=== PATIENT | female | born 1985 | race Caucasian/White ===

== ENCOUNTER 2019-04-12 07:53 | Inpatient (IN) | payer MEDICAID ==
[2019-04-12] VITALS (11 sets, daily range): BP systolic 118–155; BP diastolic 73–99
[~2019-04-12] VITALS: Ht 172.7 cm; Wt 106.2 kg
[~2019-04-12 07:53] MED LIST: CALC300T4 PO; CODE-54 PO; DCS100C PO; DOCU100C37 PO; IBUP-1780 PO; Ibuprofen PO; OXYC-465 PO; PREN-37 PO; PREN1TAB71 PO
[2019-04-12] MEDS ORDERED: fentaNYL INJECTION 100 MCG/2 ML AMP ONE ×3 (07:55→13:22)
[2019-04-12] MEDS ORDERED: KETAMINE/NaCl 50 MG/5 ML SYRINGE (ED ONLY) ONE (07:56)
[2019-04-12] MEDS ORDERED: fentaNYL INJECTION 100 MCG/2 ML AMP IVP STA ×2 (07:59→08:48)
[2019-04-12] MEDS ORDERED: KETAMINE 50 MG/ML 10 ML VIAL IV ONE (08:00)
--- NOTE | 2019-04-12 08:12 | ED Lower Extremity ---
General Chief Complaint: Lower Extremity Stated Complaint: LEG INJ Nursing Triage Note: ASSISTED PT OUT OF CAR. PT STATES SHE SLIPPED ON THE ICE ET THINKS HER RIGHT LEG IS BROKE. Nursing Sepsis Screen: No Definite Risk Source: patient Exam Limitations: no limitations History of Present Illness Date Seen by Provider: Apr 12, 2019 Time Seen by Provider: 07:56 Initial Comments Here with 4 right ankle and lower leg pain after she slipped on the ice this morning. She feels like her legs broke. She does have deformity at the ankle on the right with lateral rotation of the foot. Complains of pain near the knee as well. Denies injury otherwise. Denies hitting her head or loss of consciousness. She did wrap the leg in a carpet for splinting. Onset: just prior to arrival (less than 30 minutes ago) Severity: moderate, severe Pain/Injury Location: right leg, right ankle Method of Injury: fell, twisted Modifying Factors: Improves With Immobilization; Worse With Movement Allergies and Home Medications Allergies Coded Allergies: Sulfa (Sulfonamide Antibiotics) (Unverified Allergy, Mild, Rash, 07/10/13) hydrocodone (Unverified Allergy, Mild, Itching, 07/10/13) Home Medications Calcium Carbonate 300 Mg Tab.chew, 600 MG PO Q4H PRN for HEARTBURN, (Reported) TAKE 2 (300MG) TABS Docusate Sodium 100 Mg Capsule, 100 MG PO BID Prescribed by: DELVIN REYES on 05/04/15947 Ibuprofen 800 Mg Tablet, 800 MG PO Q6H Prescribed by: DELVIN REYES on 05/04/1548 Oxycodone HCl/Acetaminophen 1 Each Tablet, 1-2 TAB PO Q4H PRN for PAIN Prescribed by: DELVIN REYES on 05/04/15 0948 Vit/Iron Fumarate/FA 1 Each Tablet, 1 EACH PO DAILY, (Reported) Patient Home Medication List Home Medication List Reviewed: Yes Review of Systems Constitutional: see HPI; No chills, No fever EENTM: no symptoms reported Respiratory: no symptoms reported Cardiovascular: no symptoms reported Gastrointestinal: No nausea, No vomiting Genitourinary: no symptoms reported Musculoskeletal: see HPI, joint pain, muscle pain Skin: change in color; No lesions Psychiatric/Neurological: Denies Headache, Denies Numbness, Denies Tingling All Other Systems Reviewed Negative Unless Noted: Yes Past Cmhzpuj-Ltqjfq-Exjaud Hx Past Med/Social Hx: Reviewed Nursing Past Med/Soc Hx Patient Social History Alcohol Use: Denies Use Recreational Drug Use: No Smoking Status: Never a Smoker Recent Foreign Travel: No Contact w/Someone Who Travel: No Recent Infectious Disease Expo: No Immunizations Up To Date Tetanus Booster (TDap): Unknown PED Vaccines UTD: No Past Medical History Surgeries: Yes Section Respiratory: No Cardiac: No Neurological: No Last Menstrual Period: Apr 05, 2019 Reproductive Disorders: No Genitourinary: No Gastrointestinal: Yes Gastroesophageal Reflux Musculoskeletal: No Endocrine: No Adverse Reaction/Blood Tranf: No Family Medical History Reviewed Nursing Family Hx Diabetes mellitus 19 FATHER Grandparents (Maternal Grandfather) Hepatitis C Grandparents (Maternal Grandmother) Hypertension Grandparents (Grandparents) Tuberculosis Grandparents (Maternal Grandmother) Physical Exam Vital Signs Vital Signs - First Documented 04/12/19 04/12/19 07:53 09:15 Temp 37.0 Pulse 66 Resp 16 B/P (MAP) 152/96 (114) Pulse Ox 99 O2 Delivery Room Air O2 Flow Rate 2.00 Capillary Refill : Less Than 3 Seconds Height, Weight, BMI Height: 5'8.00" Weight: 229lbs. oz. 103.552306mz; 35.00 BMI Method: General Appearance: WD/WN, moderate distress HEENT: PERRL/EOMI, pharynx normal Neck: non-tender, full range of motion, supple, normal inspection Cardiovascular: regular rate, rhythm, no murmur Respiratory: lungs clear, normal breath sounds Gastrointestinal: non tender, soft Hips: bilateral hip non-tender, bilateral hip normal inspection, bilateral hip no evidence of injury Legs: left leg non-tender, left leg normal inspection, left leg normal range of motion, left leg no evidence of injury; right leg pain, right leg soft tissue tenderness, right leg swelling, right leg other (pain at the proximal tibia and fibula as well as at the obvious deformity at the ankle.) Knees: left knee non-tender, left knee normal inspection, left knee normal range of motion, left knee no evidence of injury; right knee pain, right knee soft tissue tenderness, right knee swelling, right knee other (distal) Ankles: right ankle deformity, right ankle ecchymosis (medial malleolus), right ankle limited range of motion, right ankle pain, right ankle soft tissue tenderness, right ankle swelling, right ankle other (lateral rotation of the foot. Pulses present dorsalis pedis and posterior tibia) Feet: right foot soft tissue tenderness, right foot swelling, right foot other (findings all of the proximal foot) Neurologic/Tendon: normal sensation, normal motor functions Neurologic/Psychiatric: alert, oriented x 3 Skin: warm/dry, ecchymosis (medial ankle on the right) Procedures/Interventions Patient Education: Explained Benefits Agreement on procedure with pt: Yes Breath Sounds per Auscultation: Clear Heart Sounds per Auscultation: Regular Airway Exam: Mouth opens >2 fingers, Neck Full Range of Motion, Visulation of Uvula Sedation Adminstration Time: 09:11 Total Time spent in CS 20 Tolerated sedation well without significant adverse event or affect. Did have some mild hypoxia briefly that resolved with positioning and oxygen. End-tidal CO2 remained in the 30s throughout. Re-examination Time: 09:33 Re-examination Improving. Normal vital signs noted with normal O2 saturations. Splinting and Joint Reduction : Pre-Proc Neuro Vasc Exam: normal Post-Proc Neuro Vasc Exam: normal Progress Reduction and splinting of right ankle secondary to try malleolar fracture and proximal fibula fracture Reduction Attempts: 1 Pre-Procedure NV Exam: Yes post joint reduction film: joint reduced Progress Tolerated procedure well with no complications. Hand-Made Type: fiberglass Splint Application: Short Leg (right) Progress/Results/Core Measures Results/Orders Lab Results Laboratory Tests Test 04/12/19 08:00 04/12/19 09:25 Range/Units White Blood Count 6.6 4.3-11.0 10^3/uL Red Blood Count 4.93 4.35-5.85 10^6/uL Hemoglobin 13.9 11.5-16.0 G/DL Hematocrit 41 35-52 % Mean Corpuscular Volume 84 80-99 FL Mean Corpuscular Hemoglobin 28 25-34 PG Mean Corpuscular Hemoglobin Concent 34 32-36 G/DL Red Cell Distribution Width 16.4 H 10.0-14.5 % Platelet Count 392 130-400 10^3/uL Mean Platelet Volume 11.2 H 7.4-10.4 FL Neutrophils (%) (Auto) 39 L 42-75 % Lymphocytes (%) (Auto) 52 H 12-44 % Monocytes (%) (Auto) 7 0-12 % Eosinophils (%) (Auto) 2 0-10 % Basophils (%) (Auto) 1 0-10 % Neutrophils # (Auto) 2.6 1.8-7.8 X 10^3 Lymphocytes # (Auto) 3.5 1.0-4.0 X 10^3 Monocytes # (Auto) 0.5 0.0-1.0 X 10^3 Eosinophils # (Auto) 0.1 0.0-0.3 10^3/uL Basophils # (Auto) 0.0 0.0-0.1 10^3/uL Sodium Level 136 135-145 MMOL/L Potassium Level 5.5 H 3.6-5.0 MMOL/L Chloride Level 106 98-107 MMOL/L Carbon Dioxide Level 15 L 21-32 MMOL/L Anion Gap 15 H 5-14 MMOL/L Blood Urea Nitrogen 12 7-18 MG/DL Creatinine 1.29 0.60-1.30 MG/DL Estimat Glomerular Filtration Rate 47 BUN/Creatinine Ratio 9 Glucose Level 121 H 70-105 MG/DL Calcium Level 9.6 8.5-10.1 MG/DL Corrected Calcium 9.2 8.5-10.1 MG/DL Total Bilirubin 0.7 0.1-1.0 MG/DL Aspartate Amino Transf (AST/SGOT) 42 H 5-34 U/L Alanine Aminotransferase (ALT/SGPT) 21 0-55 U/L Alkaline Phosphatase 60 40-136 U/L Total Protein 8.5 H 6.4-8.2 GM/DL Albumin 4.5 3.2-4.5 GM/DL Serum Test, Qualitative NEGATIVE NEGATIVE Urine Color YELLOW Urine Clarity CLEAR Urine pH 6.5 5-9 Urine Specific [place] 1.025 H 1.016-1.022 Urine Protein TRACE NEGATIVE Urine Glucose (UA) NEGATIVE NEGATIVE Urine Ketones 3+ H NEGATIVE Urine Nitrite NEGATIVE NEGATIVE Urine Bilirubin NEGATIVE NEGATIVE Urine Urobilinogen 0.2 < = 1.0 MG/DL Urine Leukocyte Esterase NEGATIVE NEGATIVE Urine RBC (Auto) NEGATIVE NEGATIVE Urine RBC NONE /HPF Urine WBC RARE /HPF Urine Squamous Epithelial Cells 2-5 /HPF Urine Crystals NONE /LPF Urine Bacteria TRACE /HPF Urine Casts NONE /LPF Urine Mucus MODERATE H /LPF Urine Culture Indicated NO My Orders Orders - SHAYNE ALSTON MD Fentanyl Injection (Sublimaze Injection (04/12/19 07:55) Ketamine Syringe (Ed Only) (Ketamine Syr (04/12/19 07:56) Tibia/Fibula, Right, 2 Views (04/12/19 07:59) Ankle, Right, 3 Views (04/12/19 07:59) Cbc With Automated Diff (04/12/19 07:59) Comprehensive Metabolic Panel (04/12/19 07:59) Hcg,Qualitative Serum (04/12/19 07:59) Fentanyl Injection (Sublimaze Injection (04/12/19 07:59) Ketamine Injection (Ketalar Injection) (04/12/19 08:00) Ketamine Syringe (Ed Only) (Ketamine Syr (04/12/19 08:15) Fentanyl Injection (Sublimaze Injection (04/12/19 08:48) Ketamine Injection (Ketalar Injection) (04/12/19 09:15) Ankle, Right, 2 Views (04/12/19 09:27) Catheter(Urinary) Insert & Ass 03,15 (04/12/19 09:27) Ua Culture If Indicated (04/12/19 09:27) Ondansetron Injection (Zofran Injectio (04/12/19 09:45) Ondansetron Injection (Zofran Injectio (04/12/19 09:37) Lorazepam Injection (Ativan Injection) (04/12/19 10:00) Medications Given in ED Current Medications Medications Dose Ordered Sig/Raven Route Start Time Stop Time Status Last Admin Dose Admin Ketamine HCl 25 mg ONCE ONCE IV 04/12/19 08:15 04/12/19 08:16 DC 04/12/19 08:09 25 MG Ketamine HCl 100 mg ONCE ONCE IV 04/12/19 09:15 04/12/19 09:16 DC 04/12/19 09:11 100 MG Ondansetron HCl 4 mg ONCE ONCE IVP 04/12/19 09:45 04/12/19 09:46 DC 04/12/19 09:44 4 MG Vital Signs/I&O 04/12/19 04/12/19 07:53 09:15 Temp 37.0 Pulse 66 Resp 16 B/P (MAP) 152/96 (114) Pulse Ox 99 O2 Delivery Room Air Nasal Cannula O2 Flow Rate 2.00 Blood Pressure Mean: 114 Progress Progress Note : Progress Note Seen and evaluated. IV, labs, x-ray right tib-fib and ankle. Fentanyl 50 g IV and ketamine 25 mg IV ordered. Monitor patient. 0849: I did discuss the case with Dr. Newman. He is asked that I go ahead and reduce the ankle and place it in a splint and he will see the patient in about an hour and patient will go to surgery. This was discussed with the patient and family. 0910: We will do conscious sedation. Consent signed and on chart. Patient did receive an additional dose of fentanyl 50 g IV prior to sedation. 0911: Sedation ensues. 0933: Patient did receive ketamine 100 mg IV for sedation. Excellent effect without significant adverse issues. Joint reduced and splinted. Gonzalez catheter placed. Tolerated procedure well with no complications. 0945: Zofran 4 mg IV for nausea. Consideration for Ativan due to some anxiousness but this was held as she was better. Monitor patient. Diagnostic Imaging Diagonstic Imaging: Xray Plain Films/CT/US/NM/MRI: other Comments [facility] [place], [place] NAME: RAI KAMARA [facility] REC#: [id number] PT STATUS: REG ER : 1985 PHYSICIAN: SHAYNE ALSTON MD ADMIT DATE: 04/12/19/ER Signed Date of Exam:04/12/19 TIBIA/FIBULA, RIGHT, 2 VIEWS CLINICAL INDICATION: Patient slipped and fell this morning. Patient has right ankle injury. EXAMS: 1: X-ray of the right tibia-fibula, four views. 2: X-ray of the right ankle, three views. COMPARISON: None. FINDINGS: There is a comminuted and displaced oblique fracture involving the distal fibula which demonstrates anterior apex angulation and slight valgus angulation. There is also widening of the syndesmotic joint by at least 6 mm. There is a nondisplaced fracture of the medial malleolus. There is a posteriorly displaced fracture of the posterior malleolus with a fracture fragment displaced at least 10 mm posteriorly. There is soft tissue swelling adjacent to the ankle. There is posterior dislocation of the talus in relation to the tibia. There is a nondisplaced slightly oblique fracture involving the proximal diaphysis of the fibula. IMPRESSION: 1: X-ray of the right tibia and fibula and right ankle shows a fracture dislocation of the right ankle. There is widening of the syndesmotic joint and posterior dislocation of the talus in relation to the tibia. 2: There are comminuted and displaced fractures of the distal left fibula and posterior malleolus, and nondisplaced fractures of the proximal fibular diaphysis and medial malleolus. Dictated by: Dictated on workstation # [id number] Dict: 04/12/19 0850 Trans: 04/12/19 0917 [id number] Interpreted by: ALCIDES COCHRAN MD Electronically signed by: ALCIDES COCHRAN MD 04/12/19916 Reviewed: Reviewed by Md Diagonstic Imaging: Xray Plain Films/CT/US/NM/MRI: ankle Comments [facility] [place], [place] NAME: RAI KAMARA Ha [facility] REC#: [id number] PT STATUS: REG ER : 1985 PHYSICIAN: SHAYNE ALSTON MD ADMIT DATE: 04/12/19/ER Draft Date of Exam:04/12/19 ANKLE, RIGHT, 3 VIEWS CLINICAL INDICATION: Patient slipped and fell this morning. Patient has right ankle injury. EXAMS: 1: X-ray of the right tibia-fibula, four views. 2: X-ray of the right ankle, three views. COMPARISON: None. FINDINGS: There is a comminuted and displaced oblique fracture involving the distal fibula which demonstrates anterior apex angulation and slight valgus angulation. There is also widening of the syndesmotic joint by at least 6 mm. There is a nondisplaced fracture of the medial malleolus. There is a posteriorly displaced fracture of the posterior malleolus with a fracture fragment displaced at least 10 mm posteriorly. There is soft tissue swelling adjacent to the ankle. There is posterior dislocation of the talus in relation to the tibia. There is a nondisplaced slightly oblique fracture involving the proximal diaphysis of the fibula. IMPRESSION: 1: X-ray of the right tibia and fibula and right ankle shows a fracture dislocation of the right ankle. There is widening of the syndesmotic joint and posterior dislocation of the talus in relation to the tibia. 2: There are comminuted and displaced fractures of the distal left fibula and posterior malleolus, and nondisplaced fractures of the proximal fibular diaphysis and medial malleolus. Dictated on workstation # [id number] Dict: 04/12/19 0850 Trans: 04/12/19 09 [facility] [id number] Interpreted by: ALCIDES COCHRAN MD Electronically signed by: Reviewed: Reviewed by Me Diagonstic Imaging: Xray Plain Films/CT/US/NM/MRI: ankle Comments [facility] [place] [place] NAME: RAI KAMARA [facility] REC#: [id number] PT STATUS: REG ER : 1985 PHYSICIAN: SHAYNE ALSTON MD ADMIT DATE: 04/12/19/ER Draft Date of Exam:04/12/19 ANKLE, RIGHT, 2 VIEWS INDICATION: Right ankle injury with fracture AP and lateral views of the right ankle are obtained. Since the examination of earlier in the day, there has been significant reduction in displaced fractures and ankle dislocation. There is mild displacement of comminuted spiral type fracture involving distal shaft of the fibula with mildly displaced medial malleolar fracture. Alignment at the ankle joint is now anatomic. There is also probable mildly displaced posterior malleolar fracture. IMPRESSION: Trimalleolar fracture with mild displacement of each component. There has been reduction in ankle dislocation. Dictated on workstation # [id number] Dict: 04/12/19 0943 Trans: 04/12/19 0945 [facility] [id number] Interpreted by: DIONE BONDS MD Electronically signed by: Reviewed: Reviewed by Me Departure Communication (Admissions) Time/Spoke to Admitting Phy: 08:49 Impression Primary Impression: Trimalleolar fracture of right ankle Qualified Codes: S82.851A - Displaced trimalleolar fracture of right lower leg, initial encounter for closed fracture Additional Impression: Fracture, fibula, proximal Qualified Codes: S82.811A - Torus fracture of upper end of right fibula, initial encounter for closed fracture Disposition: ADMITTED INPATIENT Condition: Stable Admissions Decision to Admit Reason: Admit from ER (Trauma) Decision to Admit/Date: Apr 12, 2019 Time/Decision to Admit Time: 08:49 Departure-Patient Inst. Referrals: DELVIN TEIXEIRA MD (PCP/Family) Primary Care Physician SHAYNE ALSTON MD Apr 12, 2019 08:12
[2019-04-12] MEDS ORDERED: KETAMINE/NaCl 50 MG/5 ML SYRINGE (ED ONLY) IV ONE (08:15)
[2019-04-12 08:27] LABS: BASOPHILS % (AUTO) 1 % (0-10); EOSINOPHILS # (AUTO) 0.1 10^3/uL (0.0-0.3); EOSINOPHILS % (AUTO) 2 % (0-10); HEMATOCRIT 41 % (35-52); HEMOGLOBIN 13.9 G/DL (11.5-16.0); LYMPHOCYTES # (AUTO) 3.5 X 10^3 (1.0-4.0); LYMPHOCYTES % (AUTO) 52 % (12-44); MEAN CORPUSCULAR HEMOGLOBIN 28 PG (25-34); MEAN CORPUSCULAR HGB CONC 34 G/DL (32-36); MEAN CORPUSCULAR VOLUME 84 FL (80-99); MEAN PLATELET VOLUME 11.2 FL (7.4-10.4); MONOCYTES # (AUTO) 0.5 X 10^3 (0.0-1.0); MONOCYTES % (AUTO) 7 % (0-12); NEUTROPHILS # (AUTO) 2.6 X 10^3 (1.8-7.8); NEUTROPHILS % (AUTO) 39 % (42-75); PLATELET COUNT 392 10^3/uL (130-400); RED CELL DISTRIBUTION WIDTH 16.4 % (10.0-14.5); WHITE BLOOD COUNT 6.6 10^3/uL (4.3-11.0)
[2019-04-12 08:38] LABS: ALBUMIN 4.5 GM/DL (3.2-4.5); BILIRUBIN,TOTAL 0.7 MG/DL (0.1-1.0); CALCIUM 9.6 MG/DL (8.5-10.1); CREATININE SERUM 1.29 MG/DL (0.60-1.30); POTASSIUM 5.5 MMOL/L (3.6-5.0); TOTAL PROTEIN 8.5 GM/DL (6.4-8.2)
--- NOTE | 2019-04-12 09:00 | Diagnostic Imaging Report ---
CLINICAL INDICATION: Patient slipped and fell this morning. Patient has right ankle injury. EXAMS: 1: X-ray of the right tibia-fibula, four views. 2: X-ray of the right ankle, three views. COMPARISON: None. FINDINGS: There is a comminuted and displaced oblique fracture involving the distal fibula which demonstrates anterior apex angulation and slight valgus angulation. There is also widening of the syndesmotic joint by at least 6 mm. There is a nondisplaced fracture of the medial malleolus. There is a posteriorly displaced fracture of the posterior malleolus with a fracture fragment displaced at least 10 mm posteriorly. There is soft tissue swelling adjacent to the ankle. There is posterior dislocation of the talus in relation to the tibia. There is a nondisplaced slightly oblique fracture involving the proximal diaphysis of the fibula. IMPRESSION: 1: X-ray of the right tibia and fibula and right ankle shows a fracture dislocation of the right ankle. There is widening of the syndesmotic joint and posterior dislocation of the talus in relation to the tibia. 2: There are comminuted and displaced fractures of the distal left fibula and posterior malleolus, and nondisplaced fractures of the proximal fibular diaphysis and medial malleolus. Dictated by: Dictated on workstation # [id number]
[2019-04-12] MEDS ORDERED: KETAMINE HCL 100 MG/ML 5 ML VIAL IV ONE (09:15)
[2019-04-12 09:35] LABS: BILIRUBIN,URINE NEGATIVE (NEGATIVE); CLARITY,URINE CLEAR; COLOR,URINE YELLOW; GLUCOSE, URINE (UA) NEGATIVE (NEGATIVE); KETONES,URINE 3+ (NEGATIVE); LEUKOCYTE ESTERASE ,URINE NEGATIVE (NEGATIVE); NITRITE,URINE NEGATIVE (NEGATIVE); PH,URINE 6.5 (5-9); PROTEIN,URINE TRACE (NEGATIVE)
[2019-04-12] MEDS ORDERED: ONDANSETRON 4 MG/2 ML (SDV) Z0FRAN ONE ×2 (09:37→11:24)
[2019-04-12] MEDS ORDERED: ONDANSETRON 4 MG/2 ML (SDV) Z0FRAN IVP ONE (09:45)
--- NOTE | 2019-04-12 09:46 | Diagnostic Imaging Report ---
INDICATION: Right ankle injury with fracture AP and lateral views of the right ankle are obtained. Since the examination of earlier in the day, there has been significant reduction in displaced fractures and ankle dislocation. There is mild displacement of comminuted spiral type fracture involving distal shaft of the fibula with mildly displaced medial malleolar fracture. Alignment at the ankle joint is now anatomic. There is also probable mildly displaced posterior malleolar fracture. IMPRESSION: Trimalleolar fracture with mild displacement of each component. There has been reduction in ankle dislocation. Dictated by: Dictated on workstation # [id number]
[2019-04-12 09:51] LABS: BACTERIA,URINE TRACE /HPF; WBC,URINE RARE /HPF
[2019-04-12] MEDS ORDERED: LORazepam INJ 2 MG/ML (ATIVAN) VIAL IVP ONE (10:00)
--- NOTE | 2019-04-12 10:30 | History & Physical Orthopedic ---
History and Physical Subjective Date of Exam 04/12/19 Chief Complaint Right ankle fracture HPI/Events since last exam Mrs. Stanley is a 33-year-old white female who injured her right ankle morning when she slipped on the sidewalk outside of her home. She complains of only right ankle pain. No other injuries. She was seen in emergency room where she is evaluated and x-rayed noted to have a trimalleolar fracture with a synd esmosis injury right ankle. I saw the patient in the ER after initially being seen by Dr. ALSTON. When I saw her she had already had her ankle reduced and splinted. This was done under IV sedation. She denies any previous injury to her right ankle. Medical, Surgical History SurgeryC-section 2 and D&C Illnessesnone Social History Reviewed and no additions or changes from the ER chart Family History Reviewed and no addition or changes from the ER chart Review of Systems Reviewed and no additions or changes from the ER chart Allergies: Coded Allergies: Sulfa (Sulfonamide Antibiotics) (Unverified Allergy, Mild, Rash, 07/10/13) hydrocodone (Unverified Allergy, Mild, Itching, 07/10/13) Home Meds Active Scripts Docusate Sodium (Docusate Sodium) 100 Mg Capsule, 100 MG PO BID, #60 CAP Prov:DELVIN TEIXEIRA MD 05/04/15 Oxycodone HCl/Acetaminophen (Oxycodone-Acetaminophen 10-325) 1 Each Tablet, 1-2 TAB PO Q4H PRN for PAIN, #60 TAB Prov:DELVIN TEIXEIRA MD 05/04/15 Ibuprofen (Ibuprofen) 800 Mg Tablet, 800 MG PO Q6H, #60 TAB Prov:DELVIN TEIXEIRA MD 05/04/15 Reported Medications Calcium Carbonate (Tums) 300 Mg Tab.chew, 600 MG PO Q4H PRN for HEARTBURN, TAB TAKE 2 (300MG) TABS 01/26/15 Vit/Iron Fumarate/FA ( Tablet) 1 Each Tablet, 1 EACH PO DAILY, TAB 01/26/15 Objective Exam Constitutional: [Mrs. Stanley is alert and oriented but still little drowsy from her ketamine conscious sedation] HEENT: [] Within normal limits Neck: [No pain with palpation or range of motion] Cardiovascular: [Regular rhythm without murmur] Respiratory: Clear to auscultation] Gastrointestinal: Abdomen nontender with normal bowel sounds] Genitourinary: [Deferred] Skin: [] No abnormalities Back/Spine: [No pain with palpation of the thoracolumbar spine. No pain over the pelvis.] Extremities: [Right lower extremity has a posterior splint short leg. She has normal sensation of the foot and toes with good capillary refill. Unable to palpate pulses due to the splint. No pain in either hip with range of motion. No pain in either knee with range of motion. Full range of motion left ankle without pain. No foot pain. Normal sensation with good cap refill and good pulses] Neurologic: [Intact] Psychiatric: [] Hematologic/lymphatic/immunologic: [] Vital Signs Vital Signs Date Time Temp Pulse Resp B/P (MAP) Pulse Ox O2 Delivery O2 Flow Rate FiO2 04/12/19 09:15 Nasal Cannula 2.00 04/12/19 07:53 37.0 66 16 152/96 (114) 99 Room Air Lab Results Laboratory Tests 04/12/19 08:00: White Blood Count 6.6, Red Blood Count 4.93, Hemoglobin 13.9, Hematocrit 41, Mean Corpuscular Volume 84, Mean Corpuscular Hemoglobin 28, Mean Corpuscular Hemoglobin Concent 34, Red Cell Distribution Width 16.4H, Platelet Count 392, Mean Platelet Volume 11.2H, Neutrophils (%) (Auto) 39L, Lymphocytes (%) (Auto) 52H, Monocytes (%) (Auto) 7, Eosinophils (%) (Auto) 2, Basophils (%) (Auto) 1, Neutrophils # (Auto) 2.6, Lymphocytes # (Auto) 3.5, Monocytes # (Auto) 0.5, Eosinophils # (Auto) 0.1, Basophils # (Auto) 0.0, Sodium Level 136, Potassium Level 5.5H, Chloride Level 106, Carbon Dioxide Level 15L, Anion Gap 15H, Blood Urea Nitrogen 12, Creatinine 1.29, Estimat Glomerular Filtration Rate 47, BUN/Creatinine Ratio 9, Glucose Level 121H, Calcium Level 9.6, Corrected Calcium 9.2, Total Bilirubin 0.7, Aspartate Amino Transf (AST/SGOT) 42H, Alanine Aminotransferase (ALT/SGPT) 21, Alkaline Phosphatase 60, Total Protein 8.5H, Albumin 4.5, Serum Test, Qualitative NEGATIVE 04/12/19 09:25: Urine Color YELLOW, Urine Clarity CLEAR, Urine pH 6.5, Urine Specific [place] 1.025H, Urine Protein TRACE, Urine Glucose (UA) NEGATIVE, Urine Ketones 3+H, Urine Nitrite NEGATIVE, Urine Bilirubin NEGATIVE, Urine Urobilinogen 0.2, Urine Leukocyte Esterase NEGATIVE, Urine RBC (Auto) NEGATIVE, Urine RBC NONE, Urine WBC RARE, Urine Squamous Epithelial Cells 2-5, Urine Crystals NONE, Urine Bacteria TRACE, Urine Casts NONE, Urine Mucus MODERATEH, Urine Culture Indicated NO Imaging X-rays were reviewed which shows a trimalleolar fracture of the right ankle initially with posterior lateral displacement of the talus. Postreduction shows good alignment of the fractures but widening of the syndesmosis is noted Assessment and Plan Assessment Malleolar fracture right ankle Problem List Trimalleolar fracture right ankle Plan Open reduction internal fixation right ankle fracture. I discussed procedure risks, occasions they would like to proceed. Most likely will be stabilizing the syndesmosis along with plate and screws laterally and screws medially. She has a very small posterior malleolar fracture that has no articular cartilage that should reduce and probably will not require fixation. I did discuss the syndesmosis injury and the fact that this is an unstable fracture and will take approximately 12 weeks to recover. Nonweightbearing at approximately 6 weeks. We'll plan on keeping her overnight at least and most likely she will go home until Wednesday she'll require pain management and also physical therapy as she'll be nonweightbearing on the right. She's never used crutches or walker before. She is allergic to sulfa but has had no problems in the past with cephalosporins. She said oxycodone the past without any problems but does have itching with hydrocodone. Final Diagonsis Trimalleolar fracture right ankle Level of the visit: Level 3 GABO ENCARNACION MD Apr 12, 2019 10:30
[2019-04-12] MEDS ORDERED: NEO/POLY/BAC (NEOSPORIN) OINT 15 GM TUBE ONE (10:53)
[2019-04-12] MEDS ORDERED: ceFAZolin 2 GM/NS 50 ML (COMPOUNDED) IV NR (11:00)
[2019-04-12] MEDS ORDERED: ONDANSETRON 4 MG/2 ML (SDV) Z0FRAN IV PRN (11:15)
[2019-04-12] MEDS ORDERED: fentaNYL INJECTION 100 MCG/2 ML AMP IV PRN (11:15)
[2019-04-12] MEDS ORDERED: LIDOCAINE PF 2% 5 ML (XYLOCAINE) VIAL ONE (11:24)
[2019-04-12] MEDS ORDERED: SEVOFLURANE (ULTANE) 15 ML INHAL SOLN ONE (11:24)
[2019-04-12] MEDS ORDERED: DEXAMETHASONE 10 MG/ML (DECADRON) 1 ML VIAL ONE (11:24)
[2019-04-12] MEDS ORDERED: proPOfol 200 MG/20 ML (DIPRIVAN) VIAL IV ONE (11:24)
[2019-04-12] MEDS ORDERED: MIDAZOLAM 2 MG/2 ML (VERSED) VIAL ONE (11:25)
[2019-04-12] MEDS: LACTATED RINGERS 1,000 ML IV SCH ×2 (11:27→18:10)
[2019-04-12] MEDS ORDERED: FLU QUADRIvalent (5+ YOA) 2019-2020 (AFLURIA) 0.5 ML IM ONE (11:45)
[2019-04-12] MEDS ORDERED: LACTATED RINGERS 1,000 ML IV PRN (12:43)
[2019-04-12] MEDS ORDERED: ceFAZolin INJECTION 2,000 MG ONE (12:58)
[2019-04-12] MEDS ORDERED: HYDROmorphone 2 MG/ML VIAL (DILAUDID) ONE (13:34)
[2019-04-12] MEDS ORDERED: ROCURONIUM 10 MG/ML 5 ML SYRINGE IV ONE (13:40)
[2019-04-12] MEDS ORDERED: BUPIVACAINE 0.5% 30 ML (SENSORCAINE) VIAL ONE (14:43)
[2019-04-12] MEDS ORDERED: NEOSTIGMINE 3 MG/3 ML VIAL ONE (14:59)
[2019-04-12] MEDS ORDERED: GLYCOPYRROLATE 0.2 MG/ML (ROBINUL) 2 ML VIAL ONE (14:59)
--- NOTE | 2019-04-12 15:17 | Diagnostic Imaging Report ---
INDICATION: Fluoroscopy for right ankle ORIF. FINDINGS: Fluoroscopy was provided in the OR for right ankle ORIF. 46 seconds of fluoroscopic time was utilized. Images demonstrate a lateral plate and numerous screws transfixing the distal fibular fracture. There are two fully threaded syndesmotic screws. There are also partially threaded screws transfixing the medial malleolus. The alignment appears anatomic. IMPRESSION: Fluoroscopy for right ankle ORIF. Dictated by: Dictated on workstation # [id number]
[2019-04-12] MEDS ORDERED: fentaNYL INJECTION 100 MCG/2 ML AMP IVP PRN (15:45)
[2019-04-12] MEDS ORDERED: ONDANSETRON 4 MG/2 ML (SDV) Z0FRAN IVP PRN ×2 (15:45→16:15)
--- NOTE | 2019-04-12 16:01 | Operative Report - Ortho ---
Operative Report Surgeon (s)/Rear Admiral (s) Surgeon GABO ENCARNACION MD Rear Admiral n/a Pre-Operative Diagnosis trimalleolar fracture right ankle with syndesmosis disruption Post-Operative Diagnosis same Operative Report Date of Procedure: Apr 12, 2019 Name of Procedure Performed: Open reduction internal fixation of trimalleolar fracture right ankle with stabilization of the syndesmosis Description & Findings The patient was taken operating room in her hospital bed. The procedure risks, cases were discussed with the patient and family in the emergency room. After administration of general anesthesia she was placed on the OR table. Tourniquet was placed on the right thigh. The splint was removed from the right lower leg. The patient was given 2 g Ancef IV preoperatively. After a timeout, the right ankle and lower leg and foot were then prepped and draped in usual sterile manner. After prepping and elevation the tourniquet was elevated to 300 mmHg. At this point the time out was performed. Incision was made from the tip of the distal fibula proximally. This was taken down through subtendinous tissue. Bleeders are cauterized. Soft tissue also elevated off the distal fibula and then over the fracture site and proximal. Retractors were used to visualize the fracture. The patient had a segmental fracture with the middle fragment 2-1/2 mm in length. Fracture was reduced and held with reduction clamps his leg screws were placed across the fracture from anterior superior to posterior inferior at the upper fragment fracture site and then the lower fracture site. This held the fracture in good position. Then a 7 hole variable angle locking distal fibular compression plate was then applied. This found to fit well. Initial screw was placed through the distal slot and adjusted. Then screws were placed proximal to the fracture 3 and then 6 locking screws distal to the fracture in the distal fibula. The proximal screws were also locking. Again this bridge the segmental fracture. Image was used to visualize the fracture and plate and screw position and excellent alignment was noted. The syndesmosis did show widening and at this 0.2 syndesmosis screws were placed through the slots on the plate approximately a centimeter above the ankle mortise and then proximal to this. These were advanced with the syndesmosis reduced. The syndesmosis was then checked with stress with external rotation and a reduction and no widening of the syndesmosis was noted. The mortise remains symmetrical and the medial malleolar fragment was reduced anatomically. This point to percutaneous 4.0 mm partially threaded cannulated screws were placed percutaneously through the medial malleolus using guidewires and over drilling and then inserting 30 mm partially threaded screws. This held the medial malleolar fracture again which was anatomically reduced. Again there is no widening of the mortise and widening of the syndesmosis and the clear space remained symmetrical to the articular joint space. The posterior fragment was mildly displaced but did not contain any of the articular surface and the ankle was stable so this was not reduced and fixed. Again image was used to visualize the ankle after the above fixation and excellent alignment of the plate and screws were noted as well as a fibular fracture. The syndesmosis remained reduced. The medial malleolar fragment was anatomic and good position of the 2 screws. At this point the tourniquet was deflated after 75 minutes. There was minimal bleeding. Bleeders are cauterized. The wound was irrigated with normal saline. The lateral wound was closed with 0 Vicryl for musculature layers and 2-0 Vicryl for subcutaneous. The skin was closed with skin clips. The 2 wounds for passage of the percutaneous screws were closed with pb as well. Wounds were dressed with Neosporin and Adaptic 4 x 4's and wrapped with cast padding and web roll. The posterior and sugar tong splint were then applied which were wrapped with Gonzales wraps. After read lace of the tourniquet the patient had immediate blood flow back to foot toes with good capillary refill and good pulses. After application of the splint and Gonazles wraps and a popliteal block was placed by anesthesia. After this the patient was t ransferred to recovery room in good condition she tolerated the procedure well. n/a Tourniquet time again was 75 minutes at 300 mmHg Drainsnone Complicationsnone Anesthesia Type Gen. Estimated Blood Loss Less than 40 mL Packing none. Specimen(s) collected/removed None GABO ENCARNACION MD Apr 12, 2019 16:01
[2019-04-12] MEDS ORDERED: morphine INJ 10 MG/ML 1ML (SYR OR VIAL) IVP ONE (16:15)
[2019-04-12] MEDS ORDERED: HYDROmorphone 2 MG/ML VIAL (DILAUDID) IV ONE (16:15)
[2019-04-12] MEDS: oxyCODONE/APAP 5/325MG (PERCOCET 5) TABLET PO PRN ×2 (18:19→23:18)
[2019-04-12] MEDS: ceFAZolin 2 GM/50 ML NS 50 ML IV SCH (20:36)
[2019-04-13] VITALS: BP 125/77
[2019-04-13] MEDS: LACTATED RINGERS 1,000 ML IV SCH ×2 (02:57→13:25)
[2019-04-13 04:00] VITALS: BP 105/66
[2019-04-13] MEDS: ceFAZolin 2 GM/50 ML NS 50 ML IV SCH ×2 (04:06→13:52)
[2019-04-13] MEDS: ENOXAPARIN 40 MG/0.4 ML (LOVENOX) SYR SC SCH (06:23)
[2019-04-13 08:00] VITALS: BP 104/67
[2019-04-13] MEDS: oxyCODONE/APAP 5/325MG (PERCOCET 5) TABLET PO PRN ×4 (09:24→21:08)
--- NOTE | 2019-04-13 09:38 | Physical Therapy Evaluation ---
PT Evaluation-General Medical Diagnosis Admission Date Apr 12, 2019 at 10:24 Medical Diagnosis: Right Trimalteolas Fracture / Right Proximal Fibula Fracture Onset Date: Apr 12, 2019 Therapy Diagnosis Therapy Diagnosis: Debility Height/Weight Height (Feet): 5 Height (Inches): 8.00 Weight (Pounds): 229 Precautions Precautions/Isolations: Fall Prevention, Standard Precautions Weight Bear Status Right Lower Extremity: Right Non Weight Bearing Left Lower Extremity: Left Full Weight Bearing Referral Physician: Trent Reason for Referral: Evaluation/Treatment Medical History Pertinent Medical History: GERD Current History Patient presented to ER after slip on ice. Reviewed History: Yes Social History Home: Single Level Current Living Status: Significant Other Entry Into Home: Ramp PT Steps Into Home: 3 Patient currently has a ramp into house and that is where patient slipped. Dori nair states her dad is going to remove the ramp and there will three steps to get into the house. Prior Prior Level of Function SCALE: Activities may be completed with or without assistive devices. 6-Ujsfqzgkrn-exrboxn completes the activity by him/herself with no assistance from a helper. 5-Set-up or Clean-up Assistance-helper sets up or cleans up; patient completes activity. [place] assists only prior to or following the activity. 4-Supervision or Touching Assistance-helper provides verbal cues and/or touching/steadying and/or contact guard assistance as patient completes activity . Assistance may be provided throughout the activity or intermittently. 3-Partial/Moderate Assistance-helper does LESS THAN HALF the effort. [place] lifts, holds or supports trunk or limbs, but provides less than half the effort. 2-Substantial/Maximal Assistance-helper does MORE THAN HALF the effort. [place] lifts or holds trunk or limbs and provides more than half the effort. 9-Gusarbyiy-kzddrz does ALL the effort. Patient does none of the effort to complete the activity. Or, the assistance of 2 or more helpers is required for the patient to complete the activity. If activity was not attempted, code reason: 7-Patient Refused. 9-Not Applicable-not attempted and the patient did not perform the activity before the current illness, exacerbation or injury. 10-Not Attempted due to Environmental Limitations-(lack of equipment, weather restraints, etc.). 88-Not Attempted due to Medical Conditions or Safety Concerns. Bed Mobility: 6 Transfers (B,C,W/C): 6 Gait: 6 Stairs: 6 Indoor Mobility (Ambulation): Independent Stairs: Independent Prior Devices Use: None PT Evaluation-Current Subjective Patient is agreeable to therapy and is ready to get up. Pain Numeric Pain Scale: 5-Moderate Pain Location: Right Location Body Site: Foot Objective Patient Orientation: Person, Place, Time, Situation Attachments: Gonzalez Catheter, IV ROM/Strength ROM Lower Extremities BLE WFL except for right ankle Strength Lower Extremities WFL on LLE, RLE not tested. Integumentary/Posture Integumentary See nursing notes Bladder Incontinence: No Neuromuscular (Tone, Coordination, Reflexes) grossly intact Sensory Vision: Functional Hearing: Functional Sensation Left Lower Extremity: Intact Sensation Lower Extremities Patient has numbness in her RLE. Transfers Roll Left to Right (QC): 6 Sit to Lying (QC): 6 Lying to Sitting/Side of Bed(Q: 6 Sit to Stand (QC): 4 Gait Does the Patient Walk?: Yes Mode of Locomotion: Walk Anticipated Mode of Locomotion: Walk Walk 10 feet (QC): 4 Walk 50 ft with 2 Turns(QC): 4 Distance: 75' Gait Assistive Device: FWW Comments/Gait Description Patient was steady during ambulation and reported no dizziness during ambulation. Patient hopped on LLE and maintained RLE NWB status. Balance Sitting Static: Normal Sitting Dynamic: Normal Standing Static: Normal Standing Dynamic: Normal Assessment/Needs Patient was steady during ambulation and used the walker well maintaining NWB status on RLE. Patient had never used crutches prior and had reported some dizziness yesterday so walker is the safer option. Patient would benefit from skilled therapy to aide in patient returning home at maximum LOF. Rehab Potential: Good PT [facility] Goals [facility] Goals PT Front End Software Engineer Goals Time Frame: Apr 20, 2019 Roll Left & Right (QC): 6 Sit to Lying (QC): 6 Lying-Sitting on Side/Bed(QC): 6 Sit to Stand (QC): 6 Chair/Mme-be-Ezqnk Xfer(QC): 6 Toilet Transfer (QC): 6 Does the Patient Walk: Yes Walk 10 feet (QC): 6 Walk 50ft with 2 Turns (QC): 6 Walk 150 ft (QC): 6 PT Plan Problem List Problem List: Activity Tolerance, Functional Strength, Safety, Gait, Transfer Treatment/Plan Treatment Plan: Continue Plan of Care Treatment Plan: Education, Functional Activity Rich, Functional Strength, Gait, Safety, Therapeutic Exercise, Transfers Treatment Duration: Apr 20, 2019 Frequency: 6 times per week Estimated Hrs Per Day: .25 hour per day Patient and/or Family Agrees t: Yes Safety Risks/Education Patient Education: Gait Training, Transfer Techniques Teaching Recipient: Patient Teaching Methods: Discussion Response to Teaching: Reinforcement Needed Discharge Recommendations Therapy Discharge Recommendati: Home & Family Time/GCodes Time In: 901 Time Out: 918 Total Billed Treatment Time: 17 Total Billed Treatment 1 visit EV (17 minutes) HARINDER ANSARI PT Apr 13, 2019 09:38
--- NOTE | 2019-04-13 09:51 | Progress Note - Ortho ---
Progress Note Subjective Date of Exam 04/13/19 Chief Complaint POD#1 open reduction internal fixation of right distal fibula and medial malleolus with stabilization of syndesmosis HPI/Events since last exam Iwona is a 1 day postop open reduction internal fixation right distal fibula, percutaneous screw fixation of medial malleolus and stabilization of syndesmosis with 2 screws. When I saw she is ambulating in the [place] with a walker and nonweightbearing on the right. She hasn't had any pain medication since last evening but she is getting ready to take some oral pain medication after ambulation. She is complaining of some tingling in her toes. No other complaints. Review of Systems Reviewed and no additions or changes Allergies: Coded Allergies: Sulfa (Sulfonamide Antibiotics) (Verified Allergy, Mild, Rash, 04/12/19) hydrocodone (Verified Allergy, Mild, Itching, 04/12/19) Home Meds Discontinued Reported Medications Calcium Carbonate (Tums) 300 Mg Tab.chew, 600 MG PO Q4H PRN for HEARTBURN, TAB TAKE 2 (300MG) TABS 01/26/15 Vit/Iron Fumarate/FA ( Tablet) 1 Each Tablet, 1 EACH PO DAILY, TAB 01/26/15 Discontinued Scripts Docusate Sodium (Docusate Sodium) 100 Mg Capsule, 100 MG PO BID, #60 CAP Prov:DELVIN TEIXEIRA MD 05/04/15 Oxycodone HCl/Acetaminophen (Oxycodone-Acetaminophen 10-325) 1 Each Tablet, 1-2 TAB PO Q4H PRN for PAIN, #60 TAB Prov:DELVIN TEIXEIRA MD 05/04/15 Ibuprofen (Ibuprofen) 800 Mg Tablet, 800 MG PO Q6H, #60 TAB Prov:DELVIN TEIXEIRA MD 05/04/15 Objective Exam Constitutional: [] HEENT: [] Neck: [] Cardiovascular: [] Respiratory: [] Gastrointestinal: [] Genitourinary: [] Skin: [] Back/Spine: [] Extremities: [Her splint right lower leg is intact. She has good capillary refill of her toes. She has older sensation in all 5 toes. Simply move the toes without problems or pain. There is mild swelling.] Neurologic: [] Psychiatric: [] Hematologic/lymphatic/immunologic: [] Vital Signs Vital Signs Date Time Temp Pulse Resp B/P (MAP) Pulse Ox O2 Delivery O2 Flow Rate FiO2 04/13/19 08:00 36.6 71 20 104/67 (79) 99 Room Air 04/13/19 04:00 36.7 52 18 105/66 (79) 97 Room Air 04/13/19 00:00 36.4 50 20 125/77 (93) 97 Room Air 04/12/19 20:00 Room Air 04/12/19 19:20 36.4 90 16 118/73 (88) 96 Room Air 04/12/19 16:25 36.4 64 18 144/90 (108) 96 Room Air 04/12/19 16:20 Room Air 04/12/19 16:20 36.5 18 145/89 (107) 97 Room Air 04/12/19 16:12 Room Air 04/12/19 16:10 18 153/94 (113) 97 Room Air 04/12/19 16:05 Room Air 04/12/19 16:00 18 148/98 (115) 97 Room Air 04/12/19 15:50 Room Air 04/12/19 15:50 18 155/94 (114) 100 Room Air 04/12/19 15:43 Simple Mask 10 04/12/19 15:40 18 154/99 (117) 100 Simple Mask 10 04/12/19 15:38 Simple Mask 10 04/12/19 15:30 18 154/98 (116) 100 Simple Mask 10 04/12/19 15:25 Simple Mask 10 04/12/19 15:25 36.3 20 142/90 (107) 100 Simple Mask 10 04/12/19 12:00 36.4 64 18 120/76 (91) 91 Room Air 04/12/19 11:15 Room Air 04/12/19 11:07 37.0 64 18 120/76 91 Room Air 04/12/19 10:40 64 18 102/85 99 Room Air I & O 04/13/19 07:00 Intake Total 2670 ml Output Total 2250 ml Balance 420 ml Assessment and Plan Assessment Doing well first day postop Problem List Unchanged Plan I talked to Iwona and her about discharge. She is doing fairly well. We'll see how she does on her oral pain medication. She has 1 more dose of antibiotics at 1 o'clock this afternoon. I think her numbness or tingling is due to swelling. He did have normal sensation of her toes in recovery room. We'll see how she does throughout the day today. Therapy will continue to work with her as she has some steps to go up. If she is feeling up to it we may discharge her this afternoon. If not tomorrow morning. Final Diagonsis Status post open reduction internal fixation right distal fibula, percutaneous screw fixation medial malleolus, stabilization of syndesmosis with 2 syndesmotic screws Level of the visit: Level 3 Clinical Quality Measures DVT/VTE Risk/Contraindication: Risk Factor Score Per Nursin RFS Level Per Nursing on Admit: 4+=Very High GABO ENCARNACION MD Apr 13, 2019 09:51
--- NOTE | 2019-04-13 11:18 | Physical Therapy Daily Note ---
PT Daily Note-Current Subjective Patient is agreeable to therapy at this time. Appearance Patient in bed with leg elevated, call light and bedside table within reach. Family present. Mental Status Patient Orientation: Person, Place, Time, Situation Attachments: IV Transfers SCALE: Activities may be completed with or without assistive devices. 7-Ocnoykcxgz-pgrbide completes the activity by him/herself with no assistance from a helper. 5-Set-up or Clean-up Assistance-helper sets up or cleans up; patient completes activity. [place] assists only prior to or following the activity. 4-Supervision or Touching Assistance-helper provides verbal cues and/or touching/steadying and/or contact guard assistance as patient completes activity. Assistance may be provided throughout the activity or intermittently. 3-Partial/Moderate Assistance-helper does LESS THAN HALF the effort. [place] lifts, holds or supports trunk or limbs, but provides less than half the effort. 2-Substantial/Maximal Assistance-helper does MORE THAN HALF the effort. [place] lifts or holds trunk or limbs and provides more than half the effort. 9-Zdjdwlbyx-qaatie does ALL the effort. Patient does none of the effort to complete the activity. Or, the assistance of 2 or more helpers is required for the patient to complete the activity. If activity was not attempted, code reason: 7-Patient Refused. 9-Not Applicable-not attempted and the patient did not perform the activity before the current illness, exacerbation or injury. 10-Not Attempted due to Environmental Limitations-(lack of equipment, weather restraints, etc.). 88-Not Attempted due to Medical Conditions or Safety Concerns. Roll Left & Right (QC): 6 Sit to Lying (QC): 6 Lying to Sitting/Side of Bed(Q: 6 Sit to Stand (QC): 6 Weight Bearing Right Lower Extremity: Right Non Weight Bearing Left Lower Extremity: Left Full Weight Bearing Gait Training Does the Patient Walk?: Yes Distance: 20' Walk 10 feet (QC): 6 Gait Persons Needed: 1 Gait Assistive Device: FWW Ambulation is stable. Patient hops while maintaining NWB status. Wheelchair Training Does the Pt Use a Wheelchair?: No Stair Training Stair Training: Handrails/: uses walker #of Steps: 1 1 Step (curb) (QC): 4 Stairs: Pattern: Hops [facility] for safety Assessment Current Status: Excellent Progress Patient is steady during ambulation maintaining NWB status. Patient is able ascend/descend one step safely. Patient voices she wants to utilize a knee scooter in home. Education with patient on use initiated. Family present are in the health care field and feel comfortable with going home and status. PT to dismiss patient from services at this time. PT Care Home Goals Training Professional Goals PT Care Home Goals Time Frame: Apr 20, 2019 Roll Left & Right (QC): 6 Sit to Lying (QC): 6 Lying-Sitting on Side/Bed(QC): 6 Sit to Stand (QC): 6 Chair/Dza-lo-Kuurj Xfer(QC): 6 Toilet Transfer (QC): 6 Does the Patient Walk: Yes Walk 10 feet (QC): 6 Walk 50ft with 2 Turns (QC): 6 Walk 150 ft (QC): 6 PT Plan Treatment/Plan Treatment Plan: Discontinue PT, goals met Treatment Plan: Education, Functional Activity Rich, Functional Strength, Gait, Safety, Therapeutic Exercise, Transfers Treatment Duration: Apr 20, 2019 Frequency: 6 times per week Estimated Hrs Per Day: .25 hour per day Patient and/or Family Agrees t: Yes Safety Risks/Education Patient Education: Gait Training, Transfer Techniques, Steps Teaching Recipient: Patient, Family Teaching Methods: Discussion Discharge Recommendations Therapy Discharge Recommendati: Home & Family Time/GCodes Time In: 1058 Time Out: 1108 Total Billed Treatment Time: 10 Total Billed Treatment 1 visit FA (10 minutes) HARINDER ANSARI PT Apr 13, 2019 11:18
[2019-04-13 12:00] VITALS: BP 107/68
--- NOTE | 2019-04-13 13:55 | Anesthesia-General Post-Op ---
General Patient Condition Mental Status/LOC: Same as Preop Cardiovascular: Satisfactory Nausea/Vomiting: Absent Respiratory: Satisfactory Pain: Controlled Complications: Absent Post Op Complications Complications None Follow Up Care/Instructions Patient Instructions None needed. Anesthesia/Patient Condition Patient Condition Patient is doing well, no complaints, stable vital signs, no apparent adverse anesthesia problems. Block seemed to work well for post-op pain control. BRIAN COLES DO Apr 13, 2019 13:55
[2019-04-13] MEDS ORDERED: OXYC1TAB87 PO (15:23)
[2019-04-13 15:51] VITALS: BP 104/59
[2019-04-13 19:20] VITALS: BP 98/57
[2019-04-14 00:20] VITALS: BP 108/71
[2019-04-14] MEDS: oxyCODONE/APAP 5/325MG (PERCOCET 5) TABLET PO PRN ×4 (00:38→12:24)
[2019-04-14] MEDS: ENOXAPARIN 40 MG/0.4 ML (LOVENOX) SYR SC SCH (06:06)
[2019-04-14 08:00] VITALS: BP 131/83
--- NOTE | 2019-04-14 09:44 | Progress Note - Ortho ---
Progress Note Subjective Date of Exam 04/14/19 Chief Complaint POD#2 open reduction internal fixation of the right distal fibula, percutaneous screw fixation medial malleolus fracture and stabilization of syndesmosis with 2 syndesmotic screws HPI/Events since last exam Mrs. Stanley is 2 days postop. She is complaining of increased pain today. She states oxycodone is only lasting about 3 hours. She is wondering about taking ibuprofen. She has been up ambulating with walker. Nonweight on the right lower extremity. She's been looking for a knee scooter for ambulation but she has been able to find one end and insurance doesn't cover it. Review of Systems Reviewed and no additions or changes Allergies: Coded Allergies: Sulfa (Sulfonamide Antibiotics) (Verified Allergy, Mild, Rash, 04/12/19) hydrocodone (Verified Allergy, Mild, Itching, 04/12/19) Home Meds Active Scripts Oxycodone HCl/Acetaminophen (Percocet 5-325 mg Tablet) 1 Each Tablet, 1-2 TAB PO Q4HR PRN for PAIN-MODERATE (5-7) for 14 Days, #40 TAB Prov:GABO ENCARNACION MD 04/13/19 Discontinued Reported Medications Calcium Carbonate (Tums) 300 Mg Tab.chew, 600 MG PO Q4H PRN for HEARTBURN, TAB TAKE 2 (300MG) TABS 01/26/15 Vit/Iron Fumarate/FA ( Tablet) 1 Each Tablet, 1 EACH PO DAILY, TAB 01/26/15 Discontinued Scripts Docusate Sodium (Docusate Sodium) 100 Mg Capsule, 100 MG PO BID, #60 CAP Prov:DELVIN TEIXEIRA MD 05/04/15 Oxycodone HCl/Acetaminophen (Oxycodone-Acetaminophen 10-325) 1 Each Tablet, 1-2 TAB PO Q4H PRN for PAIN, #60 TAB Prov:DELVIN TEIXEIRA MD 05/04/15 Ibuprofen (Ibuprofen) 800 Mg Tablet, 800 MG PO Q6H, #60 TAB Prov:DELVIN TEIXEIRA MD 05/04/15 Objective Exam Constitutional: [] HEENT: [] Neck: [] Cardiovascular: [] Respiratory: [] Gastrointestinal: [] Genitourinary: [] Skin: [] Back/Spine: [] Extremities: [Splint is intact. She can move her toes and has good capillary refill. She still has a little altered sensation but she states is improving. No pain with range of motion of the toes.] Neurologic: [] Psychiatric: [] Hematologic/lymphatic/immunologic: [] Vital Signs Vital Signs Date Time Temp Pulse Resp B/P (MAP) Pulse Ox O2 Delivery O2 Flow Rate FiO2 04/14/19 08:00 36.4 71 20 131/83 (99) 96 Room Air 04/14/19 00:20 36.3 66 18 108/71 (83) 93 Room Air 04/13/19 20:00 Room Air 04/13/19 19:20 36.9 68 15 98/57 (71) 95 Room Air 04/13/19 15:51 37.0 75 12 104/59 (74) 97 Room Air 04/13/19 12:00 36.8 58 20 107/68 (81) 99 Room Air I & O 04/14/19 07:00 Intake Total 5180 ml Output Total 650 ml Balance 4530 ml Lab Results Microbiology 04/12/19 MRSA Screen - Final, Complete MRSA not isolated Assessment and Plan Assessment Doing well secondary postop Problem List Unchanged Plan Discharged today. Follow-up on Wednesday for removal of splint, dressing change and application of a cast. She has her prescription for oxycodone 5/325 number 40. I think she could take ibuprofen 800 mg 3 times a day with food and that should help with her pain. Continue elevation and ice. She does have a walker so she'll use that at home, nonweightbearing on the right Final Diagonsis Status post open reduction internal fixation right distal fibula, percutaneous screw fixation medial malleolus, syndesmosis stabilization Level of the visit: Level 3 Clinical Quality Measures DVT/VTE Risk/Contraindication: Risk Factor Score Per Nursin RFS Level Per Nursing on Admit: 4+=Very High GABO ENCARNACION MD Apr 14, 2019 09:44
--- NOTE | 2019-04-14 09:48 | Discharge Inst-Simple/Standard ---
Discharge Inst-Standard Reconcile Patient Problems Problems Reviewed?: Yes Discharge Medications New, Converted or Re-Newed RX: RX Given to Pt/Family Patient Instructions/Follow Up Plan of Care/Instructions/FU: Follow-up appointment in the clinic Monday 04/17 at 0900 Continue elevation and ice right ankle Walker ambulation nonweightbearing on the right Oxycodone 5/325 one to 2 every 4 hours. Pain Ibuprofen 800 mg 3 times a day with food Aspirin 325 mg daily Activity as Tolerated: No Discharge Diet: No Restrictions GABO ENCARNACION MD Apr 14, 2019 09:48
--- NOTE | 2019-04-14 09:54 | Short Stay Summary ---
Discharge Summary Hospital Course Was the Problem List Reviewed?: Yes Final Diagnosis: right ankle fracture Hospital Course Date of Admission: Apr 12, 2019 at 10:24 Admission Diagnosis : Family Physician/Provider: Gautam Davila MD Date of Discharge: 04/14/19 Discharge Diagnosis: [Right ankle fracture ] Hospital Course: [ ] The patient was admitted through the ER on 04/12. She had fallen and injured her right ankle. X-rays showed a trimalleolar fracture with syndesmosis disruption. This was reduced and splinted in the ER by Dr. Damon. She was taken to the operating room that day and under general anesthesia had an open reduction internal fixation of the right distal fibula, percutaneous screw fixation of the medial malleolar fracture, and stabilization of the syndesmosis with 2 syndesmotic screws. She was splinted and admitted for pain management, physical therapy and antibiotic treatment. She was seen by physical therapy first day postop and started on walker a mbulation nonweightbearing on the right. She was maintained on Ancef 2 g IV 3 doses postop. She was placed on Lovenox 40 mg subcutaneous daily for DVT prophylaxis. She was discharged on the second postoperative day. Her pain was controlled fairly well with oxycodone 5/325. He'll continue with walker ambulation nonweightbearing on the right. Follow-up in the office on 04/17 for dressing change and application of cast. He'll continue on the oxycodone 5/325 one every 4 hours when necessary pain. Aspirin 325 mg for DVT prophylaxis. Ibuprofen 800 mg 3 times a day with food for pain management. Normal lab on admission. No additional labs during her hospital stay Labs and Pending Lab Test: Microbiology 04/12/19 MRSA Screen - Final, Complete MRSA not isolated Home Meds Active Percocet 5-325 mg Tablet (Oxycodone HCl/Acetaminophen) 1 Each Tablet 1-2 Tab PO Q4HR PRN 14 Days Assessment/Pt Instructions Continue ice, elevation Walker ambulation nonweightbearing on the right Follow-up nails on 04/17 Discharge Instructions Discharge Diet: No Restrictions Activity as Tolerated: No Discharge Physical Examination General Appearance: Alert, Oriented X3, Cooperative, Mild Distress HEENT: Atraumatic Respiratory: Clear to Auscultation Cardiovascular: Regular Rate Abdominal: Normal Bowel Sounds Skin: No Rashes Psych/Mental Status: Mental Status NL Allergies: Coded Allergies: Sulfa (Sulfonamide Antibiotics) (Verified Allergy, Mild, Rash, 04/12/19) hydrocodone (Verified Allergy, Mild, Itching, 04/12/19) Discharge Summary Date of Admission Apr 12, 2019 at 10:24 Date of Discharge Clinical Quality Measures DVT/VTE Risk/Contraindication: Risk Factor Score Per Nursin RFS Level Per Nursing on Admit: 4+=Very High GABO ENCARNACION MD Apr 14, 2019 09:54
--- NOTE | 2019-04-14 13:02 | Physical Therapy Progress Note ---
Therapy Progress Note Nurse was asking PT to assess patient's walker. She had ankle surgery and is NWB on one side. She is not able to get a knee scooter due to insurance reasons. She has a 4-wheeled walker that PT does not recommend. PT recommends a 2-wheeled walker or standard walker which she can bear weight on and hop to keep her NWB status. ELSY ALBA PT Apr 14, 2019 13:02
[2019-04-14 13:20] VITALS: BP 131/83
== END 2019-04-14 13:20 | disposition home or self-care (01) | DRG 494 ==
LOC: EDUNIT# 07:53 → ER 07:54 → 4TH 10:20 → SDC 10:20 → 4TH 10:24
PROVIDERS: ADMIT Orthopaedic Surgery; ATTEND Orthopaedic Surgery
PROC: 0QSG34Z Reposition Right Tibia with Internal Fixation Device, Percutaneous Approach (ICD-10-PCS; 2019-04-12)
PROC: 0QSG04Z Reposition Right Tibia with Internal Fixation Device, Open Approach (ICD-10-PCS; principal; 2019-04-12 13:04)
DX: S82.851A Displaced trimalleolar fracture of right lower leg, initial encounter for closed fracture (principal); K21.9 Gastro-esophageal reflux disease without esophagitis; W01.0XXA Fall on same level from slipping, tripping and stumbling without subsequent striking against object, initial encounter; Y92.480 Sidewalk as the place of occurrence of the external cause; Z79.1 Long term (current) use of non-steroidal anti-inflammatories (NSAID)
CPT/HCPCS: 29515; 36415; 51702; 73590; 73600; 73610; 80053; 81000; 84703; 85025; 87081; 93041

== ENCOUNTER → 2019-04-17 | Outpatient (CLI) | payer MEDICAID ==
[~2019-04-17] MED LIST changes: +OXYC1TAB87 PO
== END ==
LOC: ORTHO 08:53
PROVIDERS: ATTEND Orthopaedic Surgery
DX: S82.851A Displaced trimalleolar fracture of right lower leg, initial encounter for closed fracture (principal); W01.0XXA Fall on same level from slipping, tripping and stumbling without subsequent striking against object, initial encounter; Z79.1 Long term (current) use of non-steroidal anti-inflammatories (NSAID)
CPT/HCPCS: 29405

== ENCOUNTER → 2019-04-28 | Outpatient (CLI) | payer MEDICAID ==
--- NOTE | 2019-04-28 09:51 | Diagnostic Imaging Report ---
INDICATION: Right ankle fracture, follow-up. TIME OF EXAM: 9:06 AM Correlation is made with prior ankle radiograph from 04/12/2019. FINDINGS: Lateral plate and numerous screws transfix the distal fibular fracture. There are also 2 partially threaded screws transfixing the medial malleolus. There are 2 fully threaded syndesmotic screws. Ankle alignment maintained. Ankle mortise is maintained. Talar dome is smooth. Distal tibial posterior malleolar fracture is again noted. IMPRESSION: ORIF distal tibial and fibular fractures. Overall alignment is near-anatomic. Dictated by: Dictated on workstation # [id number]
== END ==
LOC: ORTHO 08:29
PROVIDERS: ATTEND Orthopaedic Surgery
DX: S82.851D Displaced trimalleolar fracture of right lower leg, subsequent encounter for closed fracture with routine healing (principal); Z98.890 Other specified postprocedural states
CPT/HCPCS: 73610

== ENCOUNTER → 2019-05-12 | Outpatient (CLI) | payer MEDICAID ==
--- NOTE | 2019-05-12 09:55 | Diagnostic Imaging Report ---
EXAMINATION: Right ankle at 9:34 a.m. INDICATION: Follow-up fracture. Three views were obtained. The prior exam of 04/28/2019 noted an orthopedic plate and screw fixation device along the lateral aspect of the distal fibula. There are also two orthopedic fixation screws traversing both the distal tibia and fibula as well as two orthopedic fixation screws obliquely traversing the fracture of the medial malleolus of the tibia. On this exam the orthopedic hardware is again evident and seems stable in position. The main fracture fragments are also similar in alignment to the prior exam. There is only a small amount of healing callus formation present and the fractures involving the fibula are still clearly evident. The medial malleolar fracture is only barely visible. The ankle mortise is not widened and the talar dome is smooth. There is still mild soft tissue edema along the medial aspect of the ankle joint. IMPRESSION: The posttraumatic and postsurgical changes involving the distal tibia and fibula seen previously appear stable. No new abnormality has developed. Dictated by: Dictated on workstation # [id number]
== END ==
LOC: ORTHO 08:47
PROVIDERS: ATTEND Orthopaedic Surgery
DX: S82.891D Other fracture of right lower leg, subsequent encounter for closed fracture with routine healing (principal); X58.XXXD Exposure to other specified factors, subsequent encounter; Z98.890 Other specified postprocedural states
CPT/HCPCS: 73610

== ENCOUNTER → 2019-05-26 | Outpatient (CLI) | payer MEDICAID ==
--- NOTE | 2019-05-26 10:01 | Diagnostic Imaging Report ---
INDICATION: Right ankle fracture, follow-up Three views of the right ankle were obtained and compared with 05/12/2019. Comminuted fracture of the distal fibular shaft is again noted without change in alignment compared to the prior study. I do not see significant callus formation. The hardware in the distal fibula with plate and screws is unchanged in position. Two screws are seen fusing the distal tibia and fibula. There are also screws fusing the medial malleolar fracture in anatomic alignment. Posterior malleolar fracture is unchanged. IMPRESSION: Stable alignment of right ankle fractures compared to the prior study with no new abnormality. Dictated by: Dictated on workstation # [id number]
== END ==
LOC: ORTHO 09:34
PROVIDERS: ATTEND Orthopaedic Surgery
DX: S82.891D Other fracture of right lower leg, subsequent encounter for closed fracture with routine healing (principal)
CPT/HCPCS: 73610

== ENCOUNTER → 2019-06-09 | Outpatient (CLI) | payer MEDICAID ==
--- NOTE | 2019-06-09 09:52 | Diagnostic Imaging Report ---
INDICATION: Fracture follow-up. COMPARISON: 05/26/2019. TECHNIQUE: 3 views of the right ankle were obtained. FINDINGS: ORIF of comminuted distal fibular fracture utilizing semitubular plate and screw fixation, along with 2 interfragmentary screws. 2 syndesmotic screws remain in stable alignment without features of loosening. Partially threaded medial malleolar lag screws are intact. Mildly depressed fracture of the posterior malleolus is unchanged. No new fracture. No osteochondral lesion of the talar dome. IMPRESSION: Stable alignment and position of trimalleolar fracture status post ORIF. Dictated by: Dictated on workstation # [id number]
== END ==
LOC: ORTHO 09:04
PROVIDERS: ATTEND Orthopaedic Surgery
DX: S82.891D Other fracture of right lower leg, subsequent encounter for closed fracture with routine healing (principal); X58.XXXD Exposure to other specified factors, subsequent encounter
CPT/HCPCS: 73610

== ENCOUNTER → 2019-08-23 | Outpatient (CLI) | payer MEDICAID ==
--- NOTE | 2019-08-23 11:18 | Diagnostic Imaging Report ---
EXAMINATION: Right ankle radiographs, 3 views. COMPARISON: June 09, 2019. HISTORY: 34-year-old female, follow-up ankle fracture. FINDINGS: There is sideplate and screw fixation hardware along the distal tibia with additional syndesmotic screws present. The more inferiorly located syndesmotic screw is fractured. The fracture of the screw is an interval change since June 09, 2019. There are 2 fixation screws traversing the medial malleolus. There is a chronic appearing fracture deformity of the posterior malleolus. There is a redemonstrated displaced fracture fragment at the level of the distal fibular diaphysis which may not necessarily be completely bridged; however, there is no otherwise currently visible fracture line in the tibia or fibula. There is no large tibiotalar joint effusion. There is an ossification below the tip of the medial malleolus which is most consistent with the sequela of remote prior injury. There is soft tissue swelling at the level of the distal tibia and fibula. IMPRESSION: 1. New fracture of the most inferiorly located syndesmotic screw. The additional fixation hardware does appear to be intact. 2. Interval healing response at site of prior distal tibial and fibular fractures. Report was faxed to office of Dr. Newman by kelsy at 11:20 am. Dictated by: Dictated on workstation # [id number]
== END ==
LOC: ORTHO 09:59
PROVIDERS: ATTEND Orthopaedic Surgery
DX: S82.851D Displaced trimalleolar fracture of right lower leg, subsequent encounter for closed fracture with routine healing (principal)
CPT/HCPCS: 73610; 99213

== ENCOUNTER → 2019-09-20 | Outpatient (CLI) | payer MEDICAID | LOC: ORTHO 10:17 | PROVIDERS: ATTEND Orthopaedic Surgery | DX: S82.851D Displaced trimalleolar fracture of right lower leg, subsequent encounter for closed fracture with routine healing (principal); X58.XXXD Exposure to other specified factors, subsequent encounter ==

== ENCOUNTER 2019-10-13 13:09 | Outpatient (RCR) | payer MEDICAID | END 2019-11-13 14:56 | disposition home or self-care (01) | PROVIDERS: ATTEND Orthopaedic Surgery | DX: S82.891A Other fracture of right lower leg, initial encounter for closed fracture (principal); Z91.09 Other allergy status, other than to drugs and biological substances; Z98.890 Other specified postprocedural states ==

== ENCOUNTER → 2021-05-05 | Outpatient (CLI) | payer MEDICAID ==
[~2021-05-05] MED LIST changes: -OXYC-465 PO; +OXYC-556 PO
--- NOTE | 2021-05-05 13:00 | Diagnostic Imaging Report ---
INDICATION: Right ankle pain. COMPARISON: 08/23/2019. EXAMINATION: Right ankle, 3 views. FINDINGS: A sideplate with bone screws is again seen in the fibula. The inferior syndesmotic screw is again noted to be fractured and unchanged. The superior screw remains intact. There are two bone screws again noted in the medial malleolus. There has been healing of the fibular and tibial fractures. The ankle mortise shows good alignment. The articulating surfaces are smooth. IMPRESSION: No change in the hardware has occurred since the previous exam with the fractured syndesmotic screw again noted. There has been healing of the fibular shaft and medial malleolar fractures. Dictated by: Dictated on workstation # [id number]
== END ==
LOC: ORTHO 10:01
PROVIDERS: ATTEND Orthopaedic Surgery
DX: S82.851D Displaced trimalleolar fracture of right lower leg, subsequent encounter for closed fracture with routine healing (principal); X58.XXXD Exposure to other specified factors, subsequent encounter
CPT/HCPCS: 73610; G0463; 99213

== ENCOUNTER 2022-07-23 04:02 | Emergency (ER) | payer MEDICAID ==
[~2022-07-23] VITALS: Ht 172.7 cm; Wt 115.7 kg
[2022-07-23] MEDS ORDERED: ONDANSETRON 4 MG (ZOFRAN) ORAL DISSOLVE TAB PO STA (04:29)
[2022-07-23] MEDS ORDERED: MOXIFLOXACIN OPHTH SOLN 5 MG/ML 0.3 ML SYRINGE OP ONE (04:30)
--- NOTE | 2022-07-23 04:38 | ED EENT ---
History of Present Illness General Chief Complaint: Facial Problems Stated Complaint: RIGHT SIDE FACIAL SWELLING/EYE DRAINING Source: patient Exam Limitations: no limitations History of Present Illness Date Seen by Provider: July 23, 2022 Time Seen by Provider: 04:20 Initial Comments Patient is a 36-year-old female who presents to the emergency department with a chief complaint of swelling to the right eye with redness and purulent drainage. Patient states symptom onset earlier this evening. She endorses a little blurry vision from the right eye. She has been having to use wipes to keep the eye clean. She woke up tonight with a significant amount of drainage down her cheek. There is discomfort associated. No fevers or chills. She states that she has a history of eye infections in the past. She does not wear glasses or contacts. No reported eye trauma. No sick contacts that she is aware of. She states the swelling affects both the upper and lower right eyelid, the area around the cheekbone down the right side of the face into the neck just below the ear and right jaw. She denies nausea vomiting, shortness of breath. Timing/Duration: gradual Severity: moderate Location: eye (R), facial Prearrival Treatment: no prearrival treatment Associated Symptoms: other (slight nausea and mild headache) Allergies and Home Medications Allergies Coded Allergies: Sulfa (Sulfonamide Antibiotics) (Verified Allergy, Mild, Rash, 04/12/19) hydrocodone (Verified Allergy, Mild, Itching, 04/12/19) guaifenesin (Verified Allergy, Unknown, 07/23/22) Patient Home Medication List Home Medication List Reviewed: Yes Moxifloxacin HCl (Vigamox) 0.5 % Soln, 1 DROP OP TID Prescribed by: BRENDA SWIFT on 07/23/22 0440 Ondansetron (Ondansetron Odt) 4 Mg Tab.rapdis, 4 MG SL Q8H PRN for NAUSEA/VOMITING Prescribed by: BRENDA SWIFT on 07/23/22 0440 Oxycodone HCl/Acetaminophen (Percocet 5-325 mg Tablet) 1 Each Tablet, 1-2 TAB PO Q4HR PRN for PAIN-MODERATE (5-7) Prescribed by: GABO ENCARNACION MD on 04/13/19 1523 Review of Systems Review of Systems Constitutional: see HPI Eyes: Blurred Vision (minimal), Drainage, Inflammation Ears: No Symptoms Reported Nose: no symptoms reported Mouth: no symptoms reported Throat: no symptoms reported, other (swelling down right side of face/cheek/neck) Respiratory: no symptoms reported Cardiovascular: no symptoms reported Gastrointestinal: nausea Musculoskeletal: no symptoms reported Skin: no symptoms reported Neurological: Headache All Other Systems Reviewed Negative Unless Noted: Yes Past Ntyfvnq-Bxiwtx-Bkmfjd Hx Patient Social History Tobacco Use?: No Substance use?: No Alcohol Use?: No Immunizations Up To Date Tetanus Booster (TDap): Unknown PED Vaccines UTD: No COVID19 Vaccine Collections Agent: STATES SHE HAS HAD 2 VACCINES Past Medical History Surgeries: Yes Section Respiratory: No Cardiac: No Neurological: No Reproductive Disorders: No Genitourinary: No Gastrointestinal: Yes Gastroesophageal Reflux Musculoskeletal: Yes Fractures Endocrine: No Cancer: No Psychosocial: No Integumentary: No Blood Disorders: No Adverse Reaction/Blood Tranf: No Family Medical History Diabetes mellitus 19 FATHER Grandparents (Maternal Grandfather) Hepatitis C Grandparents (Maternal Grandmother) Hypertension Grandparents (Grandparents) Tuberculosis Grandparents (Maternal Grandmother) Physical Exam Vital Signs Vital Signs - First Documented 07/23/22 04:13 Temp 36.7 Pulse 80 Resp 16 B/P (MAP) 126/78 (94) Pulse Ox 95 O2 Delivery Room Air Height, Weight, BMI Height: 5'8.00" Weight: 229lbs. oz. 103.471309od; 35.60 BMI Method: General Appearance: WD/WN, no apparent distress Eyes: right eye conjunctival inflammation, right eye lid inflammation (upper and lower), right eye other (purulent drainage noted at medial canthus; no orbital erythema, warmth; no skin lesions;) Ears: right ear other (+ pre-auricula tenderness, LAD) Nose: normal inspection Mouth/Throat: normal mouth inspection Neck: normal inspection, other (mild swelling/tendernessjust below the angle of the mandible) Cardiovascular: regular rate, rhythm Respiratory: lungs clear, normal breath sounds, no respiratory distress, no accessory muscle use Neurologic/Psychiatric: alert, normal mood/affect, oriented x 3 Skin: normal color, warm/dry Procedures/Interventions Patient Education: Explained Benefits Breath Sounds per Auscultation: Clear Heart Sounds per Auscultation: Regular Airway Exam: Mouth opens >2 fingers, Neck Full Range of Motion, Visulation of Uvula Sedation Adminstration Time: 910 Re-examination Time: 932 Progress/Results/Core Measures Results/Orders Lab Results Laboratory Tests Test 07/23/22 04:39 Range/Units Glucometer 113 H 70-110 MG/DL My Orders Orders - BRENDA SWIFT MD Accucheck Stat ONCE (07/23/22 04:29) Ondansetron Oral Dissolve Tab (Zofran (07/23/22 04:29) Moxifloxacin 5 Mg/Ml 0.3 Ml Op (Vigamox (07/23/22 04:30) Vital Signs/I&O Progress Progress Note : Time: 04:34 Progress Note patient seen and evaluated by me. pertinent physical exam findings, WDWN obese female, NAD. right eye with upper and lower lid inflammation/swelling. +puru lent drainage note to medial canthus. Scleral injection. PERRL/EOMI. no globe tenderness. no signs of orbital cellulitis. Patient does have some mild swelling over the right zygoma, preauricular area down into the neck under the angle of the mandible. No crepitance. No fever in the department. No temporal artery tenderness. Patient states no BUSTAMANTE currently. DDx based on H&P includes bacterial vs viral conjunctivitis, orbital vs preseptal cellulitis, acute angle closure glaucoma (low on list). Based on H&P I feel she ismost likely to have a bacterial conjunctivitis. WIll send an rx for vigamox to her pharmacy. Stressed the importance of monitoring symptoms closely for signs of worsening - fever, increased redness, swelling and pain with vision change. PAtient is advised to take ibuprofen for pain, cool compresses for drainage. SHe verbalizes understanding of the plan of care; all questions are sought and answered. Departure Impression Primary Impression: Conjunctivitis Qualified Codes: H10.31 - Unspecified acute conjunctivitis, right eye Disposition: 01 HOME, SELF-CARE Condition: Stable Departure-Patient Inst. Decision time for Depature: 04:46 Referrals: SHASHA LUNA APRN (PCP/Family) Primary Care Physician Patient Instructions: Conjunctivitis ([facility]) ED Add. Discharge Instructions: Continue to use a cool compress to the right eye frequently. Monitor yourself closely for signs of worsening infection. Use the eye drops (Vigamoxx) 1 drop to the right eye 3 times a day for 7 days. This has been sent to the [facility] pharmacy, as we do not have those drops in the ER currently. You can take over the counter Ibuprofen 3 pills (600mg) every 6 hours as needed for pain. Always take Ibuprofen with food. If you develop worsening eye pain, with increasing redness, fever or worsening headache and vision change, please return to the Emergency Department for re- evaluation. Scripts Ondansetron (Ondansetron Odt) 4 Mg Tab.rapdis 4 MG SL Q8H PRN for NAUSEA/VOMITING, #10 TAB Prov: BRENDA SWIFT MD 07/23/22 Moxifloxacin HCl (Vigamox) 0.5 % Soln 1 DROP OP TID for 7 Days, #3 ML 1 drop to the right eye 3 times a day for 7 days Prov: BRENDA SWIFT MD 07/23/22 Work/School Note: Work Release Form Date Seen in the Emergency Department: July 23, 2022 Return to Work: July 24, 2022 Copy Copies To 1: LAMAR RINCON KATHRYN M MD July 23, 2022 04:38
[2022-07-23] MEDS ORDERED: ONDA4TAB11 SL (04:40)
[2022-07-23] MEDS ORDERED: MOXI3DRO28 OP (04:40)
[2022-07-23 04:52] VITALS: BP 126/78
== END 2022-07-23 04:52 | disposition home or self-care (01) ==
LOC: EDUNIT# 04:02 → ER 04:05
DX: H10.9 Unspecified conjunctivitis (principal); R22.1 Localized swelling, mass and lump, neck; Z88.2 Allergy status to sulfonamides
CPT/HCPCS: 82947